=== PATIENT | female | born 1975 | race Caucasian/White ===

== ENCOUNTER 2017-11-04 09:01 | Observation (INO) | payer BC ==
[~2017-11-04] VITALS: Ht 162.6 cm; Wt 63.2 kg
--- NOTE | 2017-11-04 07:50 | PD.OP ---
Operative Report Date of Surgery: Nov 04, 2017 Preoperative Diagnosis: (1) Intramural leiomyoma of uterus (2) Subserosal leiomyoma of uterus (3) Primary dysmenorrhea (4) Pelvic and perineal pain Postoperative Diagnosis: (1) Intramural leiomyoma of uterus (2) Subserosal leiomyoma of uterus (3) Primary dysmenorrhea (4) Pelvic and perineal pain (5) Endometriosis determined by laparoscopy Procedure: 1. laparoscopic supracervical hysterectomy 2. bilateral salpingectomy 3. fulguration of endometriosis Anesthesia: JENA Surgeon: Maribell Cabrales Exhibition Organiser(s): OR staff Operation and Findings: IVF: 1300 ml LR + IV antibiotics + Methylene blue EBL: 100 ml UO: 100 ml Findings: 1, normal tubes and ovaries 2. multiple fibroids 3. endometriosis Specimens: tubes and uterus Complications: none Condition: stable Disposition: PACU Descriptions of the procedure: I discussed the risks, benefits and alternatives of the procedure with the patient. Informed consent was obtained after questions were answered. She was then taken to the operating room with her IV running. She was placed in the supine position and was given general anesthesia without difficulties or complications. Iv antibiotics were given. She was then placed in the dorsal lithotomy position and was prepped and draped in the usual sterile fashion. Attention was first turned to the patient's genital area. A bivalved speculum was introduced inside the patient's vagina. The anterior aspect of the cervix was grasped with a single tooth tenaculum for manipulation. The cervix was carefully dilated and electrocauterized with the Bovie. A uterine manipulator was carefully introduced inside her uterus. The rest of the instruments were removed from the patient's vagina. A sterile blue towel was used to cover the perineum. The surgeon changed gloves and attention was then turned to the patient's abdomen. A vertical umbilical incision was made with the scalpel. A 5 mm trocar was introduced inside the patient's abdomen under direct visualization. A pneumo -peritoneum was created with CO2 gas. Two 5 mm trocars and one 10 mm trocar were introduced inside the patient's abdomen under direct visualization in the lower right, left and mid abdomen. A survey of the patient's abdomen revealed normal anatomy. A survey of the patient's pelvis revealed the findings noted above. The fallopian tubes were carefully grasped, electrocauterized and transected with the Harmonic scalpel. The round ligaments and the utero-ovarian ligaments were carefully and serially grasped, electrocauterized and cut with the Harmonic scalpel. Excellent hemostasis was noted. Methylene blue dye was given to patient. The tissues along the uterus on both sides were serially grasped, electrocauterized and transected with the Harmonic scalpel. The ureters were noted to be away from the surgical site. The uterine vessels were skeletonized, electrocauterized and transected with the Harmonic scalpel. Good hemostasis was noted. Next, the bladder flap was created and the bladder was dissected off the lower uterine segment. Excellent hemostasis was noted. The uterine manipulator was removed. Esthela loop was used to cut and electrocauterize the cervico-uterine junction. Good hemostasis was noted. The Kleppinger was used to electrocauterize the endocervix. The morcellator was introduced inside the abdomen under direct visualization and was used to cut the uterus. The tissues were carefully removed and sent to Pathology. The surgical sites were noted to be hemostatic. Copious irrigation was done. Care was taken to ensure the removal of all small pieces of tissue which were left in the abdomen and pelvis after morcellation. Methylene blue dye was given at the beginning of the surgical procedure. The ureters were identified again and were found to be away from the surgical sites. There was no evidence of injury or blockage of the ureters or bladder. Intercede was placed over the cervix. All of the instruments were removed from the patient's abdomen. The ports were also removed under direct visualization. Excellent hemostasis was noted. The CO2 gas was carefully expressed out of the patient's abdomen. The 10 mm fascial incision was reapproximated with a figure eight stitch of 0-Vicryl. The skin incisions were injected with 0.5 % Marcaine and were reapproximated with subcutaneous stitches of 4-0 Vicryl. Mastisol and steri strips were placed over the incisions. The patient tolerated the procedure well. She was successfully extubated and transferred to PACU in stable condition. Note: I WAS NOT able to discuss surgical procedures and surgical findings with patient's ; he was not in the waiting and didn't answer the cell phone. I left a voicemail. Maribell Cabrales MD Nov 04, 2017 07:50
[2017-11-04] MEDS ORDERED: BUPIVACAINE/EPINEPHRINE 0.5% PF 30 ML VIAL ONE (09:47)
[2017-11-04] MEDS ORDERED: CITA40TA4 PO (09:49)
[2017-11-04] MEDS ORDERED: MACR100C2 PO (09:49)
[2017-11-04] MEDS ORDERED: IBUP1TAB7 PO (09:49)
[2017-11-04] MEDS ORDERED: ceFAZolin 2 GM PREMIX 50 ML ONE (10:03)
[2017-11-04] MEDS ORDERED: DEXMEDETOMIDINE HCL 200 MCG/2 ML VIAL ONE (10:31)
[2017-11-04] MEDS ORDERED: ACETAMINOPHEN 1000 MG/100 ML 100 ML IV ONE (10:31)
[2017-11-04] MEDS ORDERED: KETAMINE HCL 50 MG/5 ML SYRINGE ONE ×2 (10:31→10:32)
[2017-11-04] MEDS ORDERED: LACTATED RINGER'S 1000 ML IV PRN (10:45)
[2017-11-04] MEDS ORDERED: CHLORHEXIDINE GLUCONATE 2 % 1 PACK (2 CLOTHS) TOPICAL PRN (10:45)
[2017-11-04] MEDS ORDERED: METOPROLOL TARTRATE 25 MG TAB PO PRN (10:45)
[2017-11-04] MEDS ORDERED: ceFAZolin 2 GM/DEX PREMIX 50 ML IV SCH (10:45)
[2017-11-04] MEDS ORDERED: POVIDONE IODINE 5% (ANTISEPSIS KIT) 4 APPLICATIONS EACH NARE PRN (10:45)
[2017-11-04] MEDS ORDERED: SODIUM CHLORID 0.9% 500 ML IV PRN (10:45)
[2017-11-04] MEDS ORDERED: ZOLPIDEM TARTRATE 5 MG TAB PO PRN (11:30)
[2017-11-04] MEDS ORDERED: ONDANSETRON ODT 4 MG TAB PO PRN (11:30)
[2017-11-04] MEDS ORDERED: oxyCODONE/ACETAMINOPHEN 5 MG/325 MG TAB PO PRN (11:30)
[2017-11-04] MEDS ORDERED: LORazepam 0.5 MG TAB PO PRN (11:30)
[2017-11-04] MEDS ORDERED: diphenhydrAMINE HCL 25 MG CAP PO PRN (11:30)
[2017-11-04] MEDS ORDERED: PROPOFOL 200 MG/20 ML AMP IV ONE (12:00)
[2017-11-04] MEDS ORDERED: LIDOCAINE HCL 1% PF 5 ML SYRINGE OTHER ONE (12:00)
[2017-11-04] MEDS ORDERED: ONDANSETRON HCL 4 MG/2 ML VIAL IV ONE (12:00)
[2017-11-04] MEDS ORDERED: GLYCOPYRROLATE 1 MG/5 ML SYRINGE IV PUSH ONE (12:00)
[2017-11-04] MEDS ORDERED: ROCURONIUM INJ 50 MG/5 ML SYRINGE IV PUSH ONE (12:00)
[2017-11-04] MEDS ORDERED: LACTATED RINGER'S 1000 ML INJ 1,000 ML IV ONE (12:00)
[2017-11-04] MEDS ORDERED: METHYLENE BLUE 10 MG/ML VIAL OTHER ONE (12:00)
[2017-11-04] MEDS ORDERED: NEOSTIGMINE 5 MG/5 ML SYRINGE IV PUSH ONE (12:00)
[2017-11-04] MEDS ORDERED: DEXAMETHASONE SOD PHOS 4 MG/ML VIAL IV ONE (12:00)
--- NOTE | 2017-11-04 12:26 | EKG ---
Date Performed: 11/04/2017 Time Performed: 10:24:45 PTAGE: 42 years EKG: Sinus rhythm NORMAL ECG NO PREVIOUS TRACING DOCTOR: German Mccord Interpretating Date/Time 11/04/2017 12:24:39
[2017-11-04] MEDS ORDERED: DO NOT ADM ANY ANTICOAGULANT DRUGS PRN (12:54)
[2017-11-04] MEDS ORDERED: MIDAZOLAM HCL 2 MG/2 ML VIAL ONE (13:03)
[2017-11-04] MEDS ORDERED: MORPHINE SULFATE 4 MG/ML INJ ONE ×2 (13:03→13:04)
[2017-11-04] MEDS ORDERED: *MEPERIDINE 25 MG INJ VIAL PERIprocedural Use ONLY ONE (13:08)
[2017-11-04] MEDS ORDERED: PILL SPLITTER OTHER PRN (13:15)
[2017-11-04] MEDS: LACTATED RINGER'S 1000 ML INJ 1,000 ML IV SCH ×2 (13:17→22:42)
[2017-11-04] MEDS: DOCUSATE SODIUM 100 MG CAP PO SCH ×2 (13:17→22:41)
[2017-11-04 14:00] VITALS: BP 96/56; PULSE 91; RESP 12; TEMP 97.7
[2017-11-04] MEDS: HYDROmorphone HCL PF 2 MG/ML VIAL IV PUSH PRN ×3 (14:27→22:43)
[2017-11-04] MEDS: ACETAMINOPHEN 1000 MG/100 ML 100 ML IV SCH ×2 (17:59→22:42)
[2017-11-04 20:30] VITALS: BP 108/57; PULSE 97; RESP 18; TEMP 98.5; O2SAT 97
[2017-11-04] MEDS ORDERED: SODIUM CHLORIDE 0.9% FLUSH 10 ML FLUSH IV FLUSH SCH (21:00)
[2017-11-04] MEDS: SODIUM CHLORIDE 0.9% FLUSH 10 ML FLUSH IV FLUSH PRN (22:43)
[2017-11-04 23:50] VITALS: BP 102/53; PULSE 106; RESP 18; TEMP 98.3; O2SAT 97
[2017-11-05] MEDS: SODIUM CHLORIDE 0.9% FLUSH 10 ML FLUSH IV FLUSH PRN (02:47)
[2017-11-05] MEDS: HYDROmorphone HCL PF 2 MG/ML VIAL IV PUSH PRN (02:47)
[2017-11-05 04:30] VITALS: BP 97/55; PULSE 98; RESP 18; TEMP 98.7; O2SAT 97
[2017-11-05 04:57] VITALS: BP 97/55; PULSE 98; RESP 18; TEMP 98.7; O2SAT 97
[2017-11-05 05:26] LABS: AUTOMATED NEUTROPHIL # 7.9 TH/MM3 (1.8-7.7); BASOPHIL % 0.1 % (0.0-2.0); HEMATOCRIT 30.6 % (35.0-46.0); HEMOGLOBIN 10.5 GM/DL (11.6-15.3); LYMPH % 12.5 % (9.0-44.0); LYMPHOCYTE # 1.3 TH/MM3 (1.0-4.8); MEAN CELL VOLUME 95.7 FL (80.0-100.0); MEAN CORPUSCULAR HEMOGLOBIN 32.8 PG (27.0-34.0); MEAN CORPUSCULAR HGB CONC 34.2 % (32.0-36.0); MEAN PLATELET VOLUME 9.1 FL (7.0-11.0); MONO % 8.6 % (0.0-8.0); MONOCYTE # 0.9 TH/MM3 (0-0.9); NEUT % 78.8 % (16.0-70.0); PLATELET COUNT 171 TH/MM3 (150-450); RED BLOOD COUNT 3.19 MIL/MM3 (4.00-5.30); RED CELL DISTRIBUTION WIDTH 11.6 % (11.6-17.2)
[2017-11-05 05:45] LABS: BICARBONATE 24.9 MEQ/L (21.0-32.0); CALCIUM 7.6 MG/DL (8.5-10.1); CREATININE 0.55 MG/DL (0.50-1.00)
[2017-11-05] MEDS: LACTATED RINGER'S 1000 ML INJ 1,000 ML IV SCH (06:00)
[2017-11-05] MEDS: oxyCODONE/ACETAMINOPHEN 5 MG/325 MG TAB PO PRN ×2 (06:17→10:32)
[2017-11-05 08:23] VITALS: BP 100/58; PULSE 87; RESP 18; TEMP 98.9; O2SAT 97
--- NOTE | 2017-11-05 08:26 | HHI.PR ---
Subjective Remarks Doing well, pain is well controlled, eating well. Objective Vital Signs Vital Signs Date Time Temp Pulse Resp B/P (MAP) Pulse Ox O2 Delivery O2 Flow Rate FiO2 11/05/17 08:23 98.9 87 18 100/58 (72) 97 11/05/17 04:30 98.7 98 18 97/55 (69) 97 11/04/17 23:50 98.3 106 18 102/53 (69) 97 11/04/17 20:30 98.5 97 18 108/57 (74) 97 11/04/17 14:00 97.7 91 12 96/56 (69) 11/04/17 13:45 94 16 98/57 (71) 100 Room Air 11/04/17 13:30 76 16 95/53 (67) 100 Room Air 11/04/17 13:15 75 16 91/54 (66) 100 Room Air 11/04/17 13:00 74 16 87/56 (66) 100 Nasal Cannula 2 11/04/17 12:56 97.4 71 16 90/54 (66) 100 Nasal Cannula 2 11/04/17 09:55 98.9 88 16 109/71 (84) 100 I/O 11/04/17 11/04/17 11/04/17 11/05/17 11/05/17 11/05/17 07:00 15:00 23:00 07:00 15:00 23:00 Intake Total 1300 ml Output Total 200 ml 650 ml 550 ml Balance 1100 ml -650 ml -550 ml Intake Other 1300 ml Output Urine Total 100 ml 650 ml 550 ml Estimated Blood Loss 100 ml Result Diagram: 11/05/17 0451 11/05/17 0451 Objective Remarks Chest is clear, regular rate and rhythm. Abdomen is soft and non-distended. Incision is clean and dry. Ext no CCE. A/P Assessment and Plan Post Op Day 1 Doing well Home today and return to office in two weeks. Maribell Cabrales MD Nov 05, 2017 08:26
--- NOTE | 2017-11-05 08:31 | HHI.DCPOC ---
Discharge Care Plan Diagnosis: (1) Intramural leiomyoma of uterus (2) Subserosal leiomyoma of uterus (3) Primary dysmenorrhea (4) Pelvic and perineal pain (5) Endometriosis determined by laparoscopy Your Health Problems Are: Pelvic pain Report Symptoms to Your Doctor -Temperature above 100.5 degrees -Redness, of incision or excessive or foul smelling drainage -Unusual pain or calf pain -Increased vaginal bleeding -Painful or difficulty urinating -Feelings of extreme sadness or anxiety after 2 weeks Goals to Promote Your Health * To prevent worsening of your condition and complications * To maintain your health at the optimal level Directions to Meet Your Goals Take your medications as prescribed Follow your dietary instruction Follow activity as directed Ensure plenty of rest for recovery Drink fluids for hydration Keep your appointments as scheduled Take your immunizations and boosters as scheduled If your symptoms worsen call your PCP, if no PCP go to Urgent Care Center or Emergency Room Smoking is Dangerous to Your Health. Avoid second hand smoke Call the 24-hour crisis hotline for domestic abuse at Maribell Cabrales MD Nov 05, 2017 08:30
[2017-11-05] MEDS: DOCUSATE SODIUM 100 MG CAP PO SCH (08:42)
[2017-11-05 11:00] VITALS: BP 106/60; PULSE 90; RESP 18; TEMP 97.4; O2SAT 100
[2017-11-05] MEDS ORDERED: IBUPROFEN 800 MG TAB PO SCH (14:00)
== END 2017-11-05 12:32 | disposition home or self-care (01) ==
LOC: HSDC 09:01 → HSDI 11:28 → H1EA 13:56
PROVIDERS: ADMIT Obstetrics & Gynecology; ATTEND Obstetrics & Gynecology
DX: D25.1 Intramural leiomyoma of uterus (principal); D25.2 Subserosal leiomyoma of uterus; N94.6 Dysmenorrhea, unspecified; R10.2 Pelvic and perineal pain; N80.0 Endometriosis of uterus; Z01.810 Encounter for preprocedural cardiovascular examination
CPT/HCPCS: 00840; 58542; 58662; 80048; 85025; 86850; 86900; 86901; 88307; 93005; 94150; 96374; 96375; 96376; C1765; G0378; J0131; J0690; J1100; J1170; J2175; J2250; J2270; J2405; J2710; J3010; J7120